=== PATIENT | female | born 1995 | race Hispanic/Latino ===

== ENCOUNTER 2018-08-12 00:44 | Emergency (ER) | payer MEDICAID, OTHER ==
[2018-08-12] MEDS ORDERED: ONDANSETRON ODT 4 MG TAB ONE (01:48)
== END 2018-08-12 02:07 | disposition home or self-care (01) ==
LOC: EDH 00:44
DX: J11.1 Influenza due to unidentified influenza virus with other respiratory manifestations (principal); Z98.890 Other specified postprocedural states
CPT/HCPCS: 87804